=== PATIENT | male | born 1950 | race Caucasian/White ===

== ENCOUNTER → 2023-06-18 08:51 | Outpatient (REF) | payer OTHER, SELFPAY | LOC: RAD 08:51 | PROVIDERS: ATTENDING PHYSICIAN Student in an Organized Health Care Education/Training Program | DX: Z87.891 Personal history of nicotine dependence (principal) | CPT/HCPCS: 76770 ==

== ENCOUNTER → 2023-06-25 14:24 | Outpatient (REF) | payer OTHER, SELFPAY | LOC: HWRAD 14:24 | PROVIDERS: ATTENDING PHYSICIAN Student in an Organized Health Care Education/Training Program | DX: N28.1 Cyst of kidney, acquired (principal) | CPT/HCPCS: 76775 ==

== ENCOUNTER → 2024-07-03 10:30 | Outpatient (REF) | payer OTHER, SELFPAY | LOC: RAD 10:30 | PROVIDERS: ATTENDING PHYSICIAN Surgery Vascular Surgery; FAMILY PHYSICIAN Student in an Organized Health Care Education/Training Program | DX: I71.43 Infrarenal abdominal aortic aneurysm, without rupture (principal) | CPT/HCPCS: 76770 ==